=== PATIENT | female | born 1950 | race Two or more races ===

== ENCOUNTER 2018-06-11 19:23 | Emergency (ER) | payer MEDICARE ==
[~2018-06-11] VITALS: Ht 144.8 cm; Wt 68.4 kg
[2018-06-11 19:52] VITALS: BP 137/80
[2018-06-11] MEDS ORDERED: METHOCARBAMOL 750 MG TABLET PO ONE (20:30)
[2018-06-11] MEDS ORDERED: KETOROLAC 30 MG/1 ML ONE ×2 (20:30→20:32)
[2018-06-11] MEDS ORDERED: KETOROLAC 30 MG/1 ML IM ONE (20:30)
[2018-06-11] MEDS ORDERED: METHOCARBAMOL 750 MG TABLET ONE (20:30)
== END 2018-06-11 21:28 | disposition home or self-care (01) ==
LOC: ED 21:00
DX: S16.1XXA Strain of muscle, fascia and tendon at neck level, initial encounter (principal); V49.59XA Passenger injured in collision with other motor vehicles in traffic accident, initial encounter; Y93.89 Activity, other specified; Y92.410 Unspecified street and highway as the place of occurrence of the external cause; Y99.8 Other external cause status; T14.8XXA Other injury of unspecified body region, initial encounter
CPT/HCPCS: 72050; 72072; 96372; 99284; J1885